=== PATIENT | male | born 1965 | race Caucasian/White ===

== ENCOUNTER 2017-04-03 20:20 | Inpatient (IN) | payer BC ==
[~2017-04-03] VITALS: Ht 177.8 cm; Wt 82.0 kg
[~2017-04-03 20:20] MED LIST: DILAUDID 2MG2 MG/TA1 PO; DIOVAN80 MG OR; DOXYCYCL HYC100 M3 OR; FOLIC ACID1 MG OR; HUMIRA SC; METHOTREXATE25 MG/ML SC; MOBIC15 MG PO; MOBIC7.5 MG OR; PERCOCET1 TA4 PO
--- NOTE | 2017-04-03 20:30 | NUR ---
PT WHEELED TO ROOM 9
[2017-04-03 21:02] LABS: HEMATOCRIT 46.6 % (39.0-50.0); HEMOGLOBIN 16.6 g/dl (14.0-18.0); IMMATURE GRANULOCYTES 0.3 % (0.0-1.0); MEAN CORPUSCULAR HGB CONC 35.6 g/L CALC (32.0-36.0); NEUT# 6.93 thou/uL (1.82-7.42); RED BLOOD COUNT 5.18 mill/uL (4.70-6.10); RED CELL DISTRI WIDTH 13.3 % (11.5-15.5)
--- NOTE | 2017-04-03 21:10 | NUR ---
PT BACK FROM CT REQUESTING ICE CHIPS AGAIN. WAITING ON CT RESULTS.
[2017-04-03 21:27] LABS: ALBUMIN 5.2 g/dL (3.2-5.0); BILIRUBIN, TOTAL 1.3 mg/dL (0.0-1.4); CALCIUM 10.2 mg/dL (8.4-10.2); CREATININE 4.8 mg/dL (0.7-1.3); POTASSIUM 4.5 mmol/l (3.5-5.1); TOTAL PROTEIN 7.8 g/dL (6.3-8.2)
--- NOTE | 2017-04-03 21:40 | NUR ---
DR BOLANOS IN TO GO OVER CT RESULTS. PT ALLOWED ICE CHIPS.
--- NOTE | 2017-04-03 22:00 | NUR ---
PT NOW GIVEN SODA PER REQUEST.
[2017-04-03 22:09] LABS: CPK 1286 u/l (52-200)
[2017-04-03 22:21] LABS: MYOGLOBIN 1997 ng/mL (0 - 121)
--- NOTE | 2017-04-03 22:40 | NUR ---
BLADDER SCANNER USED URINE 247 IN BLADDER. PT TO BE ADMITTED.
--- NOTE | 2017-04-03 22:55 | NUR ---
Admission Note Report Given to: DARIAN WELLS. Transported by: Wheelchair X Stretcher Transported with: X Nurse Transporter X Patent IV O2 X Check And Transfer Beader
[2017-04-03 23:10] VITALS: BP 136/62
[2017-04-03 23:44] LABS: URINE BILIRUBIN - DIPSTICK NEGATIVE (NEGATIVE); URINE BLOOD DIPSTICK TRACE-INTACT (NEGATIVE); URINE CLARITY CLEAR; URINE COLOR YELLOW; URINE GLUCOSE - DIPSTICK NEGATIVE (NEGATIVE); URINE KETONE 15 mg/dL (NEGATIVE); URINE LEUK ESTERASE TRACE (NEGATIVE); URINE NITRITE - DIPSTICK NEGATIVE (Negative); URINE PH 5.5 (4.5-8.0); URINE PROTEIN - DIPSTICK TRACE mg/dL (NEG-TRACE); URINE UROBILINOGEN - DIPSTICK 0.2 E.U./dL (0.2)
--- NOTE | 2017-04-04 04:13 | NUR ---
PATIENT APPEARS SLEEPING AT THIS TIME WITH RESTING BEDSIDE. CALL LIGHT IN REACH. WILL CONT TO MONITOR.
[2017-04-04 04:54] VITALS: BP 89/50
[2017-04-04 04:56] VITALS: BP 96/60
[2017-04-04 05:39] LABS: ALBUMIN 3.6 g/dL (3.2-5.0); CALCIUM 8.6 mg/dL (8.4-10.2); CHOLESTEROL HDL RATIO 5.8 (<4.4 (CALC)); MAGNESIUM 1.7 mg/dL (1.6-2.3); POTASSIUM 4.1 mmol/l (3.5-5.1)
--- NOTE | 2017-04-04 06:47 | NUR ---
PATIENT AWAKE AND DRINKING COFFEE-ANXIOUS TO BE DISCHARGED DUE TO THE STORM. IVF PATENT AND INFUSING ORDERED. CALL LIGHT IN REACH. WILL CONT TO MONITOR.
--- NOTE | 2017-04-04 07:00 | NUR ---
SHIFT CHANGE REPORT FROM PRISCILLA, PT AWAKE ALERT AND ORIENTED, ANXIOUS TO GO HOME AT THIS TIME AND STATES HE HAS A BUSINESS TO TAKE CARE OF, RESPONSIBLE FOR GARBAGE COLLECTION. INFORMED AND EDUCATED ON CURRENT REANL CONDITION, ADVISED TO STAY HYDRATED AND REDUCE MUSCULAR ACTIVITY, STATES UNDERSTANDING, WILL CONTINUE TO MONITOR.
[2017-04-04 07:32] VITALS: BP 102/62
--- NOTE | 2017-04-04 07:58 | NUR ---
Discharge instructions given. Patient verbalizes understanding of same. Discharged in stable condition via Ambulatory to Home with spouse. All belongings sent with pt.
== END 2017-04-04 07:40 | disposition home or self-care (01) | DRG 683 ==
LOC: ED 20:20 → ED-I 22:00 → ED 22:45 → MS2 22:46
PROVIDERS: Emergency Medicine; ADMIT Internal Medicine; ATTEND Internal Medicine
DX: N17.9 Acute kidney failure, unspecified (principal); M62.82 Rhabdomyolysis; E86.0 Dehydration; I10 Essential (primary) hypertension; L40.50 Arthropathic psoriasis, unspecified; N20.0 Calculus of kidney; G89.29 Other chronic pain; T39.395A Adverse effect of other nonsteroidal anti-inflammatory drugs [NSAID], initial encounter

== ENCOUNTER 2024-01-30 19:35 | Emergency (ER) | payer OTHER ==
[~2024-01-30] VITALS: Ht 177.8 cm; Wt 82.0 kg
[~2024-01-30 19:35] MED LIST changes: +AMBIEN10 MG PO; +AMOX/K CLAV875 M1 PO; +AZITHROMYCIN500 MG PO; +CELEBREX200 MG PO; +CIALIS20 MG PO; +DIFLUCAN150 MG PO; +DOXYCYCLINE100 MG; +ENBREL50 MG/ML SC; +ESCITALOPRAM OX20 MG PO; +FOLIC ACID1 M1; +LISINOPRIL30 MG PO; +MACROBID100 M1 PO; +PANTOPRAZOLE SO40 M3; +PERCOCET 5/325M1 TAB PO; +POTASSIUM CITR15 MEQ; +PREDNISONE10 MG PO; +PROVENTIL HFA108 MCG IN; +REPATHA140 MG/ML; +ROBITUSSIN AC10 ML PO; +TREMFYA; +WELLBUTRIN XL150 MG PO; +XANAX2 MG PO
[2024-01-30 20:30] VITALS: BP 138/94
== END 2024-01-30 20:30 | disposition home or self-care (01) | DRG 950 ==
LOC: ED 19:35
DX: Z45.2 Encounter for adjustment and management of vascular access device (principal); L08.9 Local infection of the skin and subcutaneous tissue, unspecified; I10 Essential (primary) hypertension

== ENCOUNTER 2024-10-14 09:16 | Emergency (ER) | payer OTHER ==
[2024-10-14] VITALS (10 sets, daily range): BP systolic 159–182; BP diastolic 78–110
[~2024-10-14] VITALS: Ht 177.8 cm; Wt 86.0 kg
[2024-10-14 10:13] LABS: BASO% 0.7 % (0-3); EOS% 2.2 % (0-8); HEMATOCRIT 44.2 % (39.0-50.0); HEMOGLOBIN 14.3 g/dl (14.0-18.0); IMMATURE GRANULOCYTES 0.7 % (0.0-5.0); LYMPH% 34.7 % (15-41); MEAN CELL VOLUME 83.2 fL CALC (80.0-100.0); MEAN CORPUSCULAR HGB 26.9 pG CALC (26.0-32.0); MEAN CORPUSCULAR HGB CONC 32.4 g/dL CAL (32.0-36.0); MONO% 15.1 % (2-13); NEUT# 1.26 thou/uL (1.82-7.42); NEUT% 46.6 % (42-76); RED BLOOD COUNT 5.31 mill/uL (4.70-6.10); RED CELL DISTRI WIDTH 16.6 % (11.5-15.5)
[2024-10-14 10:30] LABS: ALBUMIN 4.2 g/dL (3.2-5.0); CREATININE 1.2 mg/dL (0.7-1.3); TOTAL PROTEIN 6.7 g/dL (6.3-8.2)
[2024-10-14 10:32] LABS: BILIRUBIN, TOTAL 0.4 mg/dL (0.2-1.3)
[2024-10-14] MEDS ORDERED: methylPREDNISolone SODIUM SUCC 125 MG/2 ML SDV IV ONE (10:35)
[2024-10-14] MEDS ORDERED: IPRATROPIUM-Albuterol 0.5MG-2.5MG/3 ML NEB ONE ×2 (10:35)
[2024-10-14] MEDS ORDERED: LISINOPRIL 20 MG/TAB PO ONE (10:35)
[2024-10-14] MEDS ORDERED: ASPIRIN 81 MG/TAB PO ONE (10:35)
[2024-10-14 11:01] LABS: TSH, 3RD GENERATION 1.18 uIU/mL (0.47 - 4.68)
[2024-10-14] MEDS ORDERED: IPRATROPIU0.5 MG/3 M IN (11:56)
[2024-10-14] MEDS ORDERED: CHERATUSSIN PO (11:56)
[2024-10-14] MEDS ORDERED: ZPAK PO (11:56)
[2024-10-14] MEDS ORDERED: NEBULIZER PO (11:56)
[2024-10-14] MEDS ORDERED: PREDNISONE50 MG PO (11:56)
== END 2024-10-14 12:15 | disposition left against medical advice (07) | DRG 153 ==
LOC: ED 09:16
PROVIDERS: Family Medicine
DX: J06.9 Acute upper respiratory infection, unspecified (principal); I10 Essential (primary) hypertension; R07.9 Chest pain, unspecified; T46.4X6A Underdosing of angiotensin-converting-enzyme inhibitors, initial encounter; Z91.128 Patient's intentional underdosing of medication regimen for other reason; Z20.822 Contact with and (suspected) exposure to COVID-19